=== PATIENT | female | born 1955 | race Caucasian/White ===

== ENCOUNTER 2022-11-06 18:16 | Emergency (ER) | payer OTHER ==
[2022-11-06] MEDS ORDERED: Boostrix 0.5 ML (Tdap) VIAL (>/=7 yrs of age) ONE (18:39)
[2022-11-06] MEDS ORDERED: Acetaminophen 500 MG TAB ONE (18:39)
== END 2022-11-06 18:47 | disposition home or self-care (01) ==
LOC: NAV ERS 18:16
DX: S01.01XA Laceration without foreign body of scalp, initial encounter (principal); E78.5 Hyperlipidemia, unspecified; W26.8XXA Contact with other sharp object(s), not elsewhere classified, initial encounter; Z23 Encounter for immunization
CPT/HCPCS: 12001; 90471; 90715